=== PATIENT | male | born 1980 | race Caucasian/White ===

== ENCOUNTER → 2016-06-15 | Outpatient (CLI) | payer OTHER | LOC: MHCPAIN 12:33 | DX: G89.29 Other chronic pain (principal); G57.92 Unspecified mononeuropathy of left lower limb | CPT/HCPCS: G0463; J1040 ==

== ENCOUNTER → 2016-07-15 | Outpatient (CLI) | payer OTHER | LOC: MHCPAIN 08:03 | DX: G89.29 Other chronic pain (principal); G57.90 Unspecified mononeuropathy of unspecified lower limb | CPT/HCPCS: G0463 ==

== ENCOUNTER → 2016-10-14 | Outpatient (CLI) | payer OTHER | LOC: MHCPAIN 07:57 | DX: G89.29 Other chronic pain (principal); M79.1 Myalgia; G57.90 Unspecified mononeuropathy of unspecified lower limb; F17.220 Nicotine dependence, chewing tobacco, uncomplicated | CPT/HCPCS: G0463 ==

== ENCOUNTER → 2018-05-24 | Outpatient (CLI) | payer BC | LOC: COL.RAD 09:36 | DX: R10.11 Right upper quadrant pain (principal) ==